=== PATIENT | female | born 1975 | race Caucasian/White ===

== ENCOUNTER 2017-07-11 15:48 | Emergency (ER) | payer OTHER ==
[~2017-07-11] VITALS: Ht 157.5 cm; Wt 72.6 kg
[~2017-07-11 15:48] MED LIST: ATIVAN2 MG PO; BACTRIM DS TAB1 EACH PO; BENAZEPRIL-HCT1 EAC3 PO; BENZTROPINE MESY2 MG PO; CARISOPRODOL 3350 MG PO; FLEXERIL PO; HALOPERIDOL 2 MG2 M1 PO; IBUPROFEN 800800 M1 PO; IBUPROFEN 800800 MG PO; LASIX 20 MG TAB20 MG PO; MEDROLDOSEPACK PO; MOBIC7.5 MG PO; NAPROSYN500 MG PO; NORCO 5-325 TA1 EACH PO; NORCO 7.5-3251 EACH PO; PENICILLIN V P500 MG PO; PHENERGAN 25 MG25 M1 PO; PRILOSEC 20 MG20 MG PO; PRINIVIL20 MG PO; ROBAXIN 750 MG750 M1 PO; TRAMADOL 50 MG50 MG PO; VERAPAMIL ER200 MG PO; VIIBRYD1 EACH PO
[2017-07-11 15:50] VITALS: BP 162/102
[2017-07-11] MEDS ORDERED: TOPROL XL25 MG PO (16:21)
[2017-07-11] MEDS ORDERED: NAPROSYN500 MG PO (17:14)
== END 2017-07-11 17:24 | disposition home or self-care (01) ==
LOC: ER 15:48
DX: S93.491A Sprain of other ligament of right ankle, initial encounter (principal); S93.691A Other sprain of right foot, initial encounter; I10 Essential (primary) hypertension; F17.210 Nicotine dependence, cigarettes, uncomplicated; Z90.710 Acquired absence of both cervix and uterus; W22.8XXA Striking against or struck by other objects, initial encounter; Y93.89 Activity, other specified; Y92.89 Other specified places as the place of occurrence of the external cause; Y99.8 Other external cause status

== ENCOUNTER 2017-09-07 23:04 | Emergency (ER) | payer OTHER ==
[~2017-09-07] VITALS: Ht 157.5 cm; Wt 77.1 kg
[~2017-09-07 23:04] MED LIST changes: +TOPROL XL25 MG PO
[2017-09-07 23:08] VITALS: BP 109/92
[2017-09-07] MEDS ORDERED: HYDROCODONE-AP1 EAC6 PO (23:17)
== END 2017-09-07 23:38 | disposition home or self-care (01) ==
LOC: ER 23:04
DX: S60.211A Contusion of right wrist, initial encounter (principal); I10 Essential (primary) hypertension; M54.30 Sciatica, unspecified side; F17.210 Nicotine dependence, cigarettes, uncomplicated; W22.8XXA Striking against or struck by other objects, initial encounter; Y93.89 Activity, other specified; Y92.89 Other specified places as the place of occurrence of the external cause; Y99.8 Other external cause status

== ENCOUNTER 2019-11-11 23:37 | Emergency (ER) | payer OTHER ==
[~2019-11-11] VITALS: Ht 160 cm; Wt 81.7 kg
[~2019-11-11 23:37] MED LIST changes: +HYDROCODONE-AP1 EAC6 PO
[2019-11-12] MEDS ORDERED: NEURONTIN 300M300 M2 PO (00:05)
[2019-11-12 00:30] VITALS: BP 129/88
[2019-11-12] MEDS ORDERED: MAGIC MOUTHWASH SW&SWALLOW (00:52)
== END 2019-11-12 01:13 | disposition home or self-care (01) ==
LOC: ER 23:37
DX: S27.818A Other injury of esophagus (thoracic part), initial encounter (principal); T17.298A Other foreign object in pharynx causing other injury, initial encounter; I10 Essential (primary) hypertension; F17.210 Nicotine dependence, cigarettes, uncomplicated; Z90.710 Acquired absence of both cervix and uterus; Z79.899 Other long term (current) drug therapy; X58.XXXA Exposure to other specified factors, initial encounter; Y93.89 Activity, other specified; Y92.89 Other specified places as the place of occurrence of the external cause; Y99.8 Other external cause status